=== PATIENT | female | born 2000 | race Caucasian/White ===

== ENCOUNTER 2019-03-02 09:59 | Emergency (ER) | payer OTHER ==
[2019-03-02] MEDS ORDERED: NACL 0.9% 500 ML 500 ML IV ONE (10:03)
[2019-03-02 10:26] LABS: Basophils # (Auto) 0.1 K/mm3 (0.0-0.1); Basophils % (Auto) 0.9 % (0.0-1.8); Eosinophils % (Auto) 0.4 % (0.0-4.3); Hematocrit 27.2 % (30.3-42.9); Hemoglobin 8.7 gm/dl (10.1-14.3); Lymphocytes # (Auto) 0.9 K/mm3 (1.2-5.4); Lymphocytes % (Auto) 14.1 % (13.4-35.0); Mean Corpuscular HGB Conc 32 % (30-34); Mean Corpuscular Volume 75 fl (79-97); Monocytes # (Auto) 0.6 K/mm3 (0.0-0.8); Monocytes % (Auto) 10.3 % (0.0-7.3); Platelet Count 228 K/mm3 (140-440); Red Blood Count 3.63 M/mm3 (3.65-5.03); Red Cell Distribution Width 17.4 % (13.2-15.2)
--- NOTE | 2019-03-02 10:38 | Emergency Department Report ---
ED Fever HPI - General Chief Complaint: Fever Stated Complaint: HIGH FEVER Time Seen by Provider: 03/02/19 10:10 Source: patient, family Exam Limitations: no limitations - History of Present Illness Initial Comments: Patient is a 18-year-old female that presents emergency room with complaints of fever. Patient states she just had a baby 02/27/2019. Patient states her delivery was normal vaginal delivery. Patient states that she sustained a vaginal laceration which was repaired. Patient states that she developed fever last night. She states her fever was greater than 102. Patient denies chest pain shortness of breath. Patient denies abdominal pain. Patient denies v aginal bleeding. Patient denies discharge per vagina. Timing/Duration: yesterday Fever Severity/Quality: greater than 102 F Fever Therapy DROP FORGER: Ibuprofen Associated Symptoms: denies: abdominal pain, chest pain, confusion, cough, diaphoresis, headache, muscle aches, nausea/vomiting, rash, shortness of breath, sore throat, stiff neck, syncope, weakness ED Review of Systems ROS: Stated complaint: HIGH FEVER Other details as noted in HPI Constitutional: denies: chills, fever Eyes: denies: eye pain, eye discharge, vision change ENT: denies: ear pain, throat pain Respiratory: denies: cough, shortness of breath, wheezing Cardiovascular: denies: chest pain, palpitations Endocrine: no symptoms reported Gastrointestinal: denies: abdominal pain, nausea, diarrhea Genitourinary: denies: urgency, dysuria, discharge Musculoskeletal: denies: back pain, joint swelling, arthralgia Skin: denies: rash, lesions Neurological: denies: headache, weakness, paresthesias Psychiatric: denies: anxiety, depression Hematological/Lymphatic: denies: easy bleeding, easy bruising ED Past Medical Hx - Past Medical History Previous Medical History?: No - Surgical History Past Surgical History?: No - Family History Family history: no significant - Social History Smoking Status: Never Smoker Substance Use Type: None ED Physical Exam - General Limitations: No Limitations General appearance: alert, in no apparent distress - Head Head exam: Present: atraumatic, normocephalic - Eye Eye exam: Present: normal appearance, PERRL, EOMI Pupils: Present: normal accommodation - ENT ENT exam: Present: mucous membranes moist - Neck Neck exam: Present: normal inspection - Respiratory Respiratory exam: Present: normal lung sounds bilaterally. Absent: respiratory distress, wheezes, rales, rhonchi - Cardiovascular Cardiovascular Exam: Present: regular rate, normal rhythm. Absent: systolic murmur, diastolic murmur, rubs, gallop - GI/Abdominal GI/Abdominal exam: Present: soft, normal bowel sounds. Absent: distended, tenderness, guarding - Rectal Rectal exam: Present: deferred - Extremities Exam Extremities exam: Present: normal inspection - Back Exam Back exam: Present: normal inspection - Neurological Exam Neurological exam: Present: alert, oriented X3 - Psychiatric Psychiatric exam: Present: normal affect, normal mood - Skin Skin exam: Present: warm, dry, intact, normal color. Absent: rash ED Course Vital Signs 03/02/19 03/02/19 03/02/19 10:00 10:25 10:49 Temperature 101.4 F H 98.8 F Pulse Rate 138 H 122 H 121 H Respiratory 18 18 18 Rate Blood Pressure 116/72 Blood Pressure 119/71 119/71 [Right] O2 Sat by Pulse 100 97 100 Oximetry 03/02/19 03/02/19 03/02/19 12:00 15:52 16:00 Temperature Pulse Rate 101 H 110 H 107 H Respiratory 18 19 31 H Rate Blood Pressure Blood Pressure 101/58 [Right] O2 Sat by Pulse 96 Oximetry 03/02/19 03/02/19 03/02/19 16:16 16:30 16:46 Temperature Pulse Rate 110 H 91 H 104 H Respiratory 20 28 H 24 Rate Blood Pressure Blood Pressure [Right] O2 Sat by Pulse Oximetry 03/02/19 03/02/19 03/02/19 17:01 17:15 17:30 Temperature Pulse Rate 102 H 97 H 102 H Respiratory 14 11 L 17 Rate Blood Pressure 106/66 109/64 119/69 Blood Pressure [Right] O2 Sat by Pulse Oximetry 03/02/19 17:59 Temperature Pulse Rate Respiratory 18 Rate Blood Pressure Blood Pressure [Right] O2 Sat by Pulse 99 Oximetry - Reevaluation(s) Reevaluation #1: discussed all results with patient. Discussed plan of care with patient. Rasta franks agrees with admission here or transfer 03/02/19 15:43 She has been accepted to be transferred to [facility]. Patient will be transported via EMS to [facility]. She agrees with transfer. 03/02/19 16:30 - Consultations Consultation #1: [facility] transfer center consultation to contact the patient's engine test cell technician, Dr. Darden. 03/02/19 12:[address] Flores from [facility], that is covering fro Dr. Darden. Dr. Flores does not accept the transfer. 03/02/19 13:52 Consultation #2: Dr. Pulido, our AUCTION[employer] ART paged 03/02/19 14:[address] Pulido and Dr. Pulido wants patient transferred 03/02/19 15:41 Consultation #3: [facility] transfer center contacted again 03/02/19 15:[address] cris Flroes. Dr. cris Flores has accepted the patient to be transferred to [facility]. 03/02/19 16:29 ED Medical Decision Making - Lab Data Result diagrams: 03/02/19 10:14 03/02/19 10:14 - Radiology Data Radiology results: report reviewed, image reviewed AP CHEST: HISTORY: Possible sepsis, fever AP view of the chest demonstrates a normal mediastinal and cardiac contour with clear lungs and normal bony and soft tissue structures. IMPRESSION: Unremarkable AP chest. - Medical Decision Making Is a 18-year-old female that presents emergency room with complaints of fever 24 hours. Patient is . Patient was discharged from [facility] yesterday morning. Patient has had fever since returning home. Patient had no other complaints. Patient had multiple labs done. Patient's labs essentially unremarkable except for a UTI. Patient will require observation to ensure her fever has assault. Patient's chest x-ray negative. I discussed this case with our GROCERY BUYER and she recommends transfer to [facility] for continuity of care. Patient has been accepted to be transferred to the facility where she had her baby. Patient will be transferred via EMS to [facility]. - Differential Diagnosis fever, fever, UTI. Critical Care Time: Yes Critical care attestation.: If time is entered above; I have spent that time in minutes in the direct care of this critically ill patient, excluding procedure time. Critical Care Time: 45 minutes ED Disposition Clinical Impression: fever Fever Qualifiers: Fever type: unspecified Qualified Code(s): R50.9 - Fever, unspecified UTI (urinary tract infection) Qualifiers: Urinary tract infection type: acute cystitis Hematuria presence: with hematuria Qualified Code(s): N30.01 - Acute cystitis with hematuria Anemia Qualifiers: Anemia type: unspecified type Qualified Code(s): D64.9 - Anemia, unspecified Disposition: DC/TX-70 ANOTHER TYPE HLTHCARE Is pt being admited?: No Does the pt Need Aspirin: No Condition: Critical Referrals: HERMANN FLOYD MD [Primary Care Provider] - 3-5 Days Time of Disposition: 16:30
[2019-03-02 10:41] LABS: Alanine Aminotransferase 28 units/L (7-56); BUN/Creatinine Ratio 13; Blood Urea Nitrogen 8 mg/dL (7-17); Calcium 8.1 mg/dL (8.4-10.2); Hemolysis Index 0
[2019-03-02 10:47] LABS: INR 0.89 (0.87-1.13)
[2019-03-02] MEDS ORDERED: MAXIPIME/NS 2 GM/100 ML 2 GM/100 ML BAG IV ONE (10:49)
[2019-03-02] MEDS ORDERED: NACL 0.9% 1000 ML IV ONE (10:58)
[2019-03-02] MEDS ORDERED: NACL 0.9% 1000 ML 2,000 ML ONE (10:59)
--- NOTE | 2019-03-02 11:01 | XRay Report ---
AP CHEST: HISTORY: Possible sepsis, fever AP view of the chest demonstrates a normal mediastinal and cardiac contour with clear lungs and normal bony and soft tissue structures. IMPRESSION: Unremarkable AP chest.
[2019-03-02 12:16] LABS: Bacteria,Urine 2+ /HPF (Negative); Bilirubin,Urine NEG (Negative); Blood,Urine LG (Negative); Color,Urine Yellow (Yellow); Mucus,Urine FEW /HPF
[2019-03-02 12:17] LABS: RBC,Urine > 182.0 /HPF (0.0-6.0); WBC,Urine > 182.0 /HPF (0.0-6.0)
[2019-03-02 19:40] VITALS: BP 116/72
== END 2019-03-02 20:03 | disposition other institution (70) ==
LOC: ED 09:59
DX: O86.4 Pyrexia of unknown origin following delivery (principal); O86.20 Urinary tract infection following delivery, unspecified; O90.81 Anemia of the puerperium
CPT/HCPCS: 36415; 71045; 80053; 81001; 82140; 82805; 85025; 85610; 86850; 86900; 86901; 87040; 87086; 93005; 93010; 96365; 96366; 99291; J0692; J7030